=== PATIENT | female | born 1940 | race Caucasian/White ===

== ENCOUNTER → 2018-02-22 | Outpatient (REF) | payer OTHER ==
[2018-02-22 12:44] LABS: FREE T3 2.8 PG/ML (2.2-4.0)
[2018-02-23 09:27] LABS: THYROID PEROXIDASE ANTIBODY < 28.0 U/ML (<60.0)
[2018-02-23 09:28] LABS: THYROGLOBULIN ANTIBODY 15.2 U/ML (<60.0)
== END ==
LOC: M LAB REF 11:46
DX: E03.9 Hypothyroidism, unspecified (principal)
CPT/HCPCS: 86800

== ENCOUNTER → 2018-12-20 | Outpatient (REF) | payer OTHER ==
[~2018-12-20] MED LIST: /WARF3TA OR; ACET65TA OR; ACTI300C OR; CIPRO OR; COLA100C2 OR; COUMADIN OR; DARV100T OR; FERR325T OR; FLAG500T OR; GLIP5TAB2 PO; LOVENOX SC; No Historical Meds; PRAV40TA2 PO; TEGR200T OR; [UNRECOGNIZED DRUG - OTHER] OR; [UNRECOGNIZED DRUG - REMARK]
== END ==
LOC: M LAB REF 17:43
PROVIDERS: ATTEND Nurse Practitioner Adult Health
DX: E03.9 Hypothyroidism, unspecified (principal)

== ENCOUNTER → 2019-04-30 | Outpatient (REF) | payer MEDICARE, OTHER ==
[~2019-04-30] MED LIST changes: -/WARF3TA OR; +ACET-907 PO; +BENA25CA4 PO; +CARB1TAB20 PO; +COUM1TAB19 OR; +LEVO75TA4 PO
== END ==
LOC: M LAB REF 13:21
PROVIDERS: ATTEND Nurse Practitioner Adult Health
DX: G50.0 Trigeminal neuralgia (principal)

== ENCOUNTER → 2019-06-24 | Outpatient (REF) | payer MEDICARE ==
[~2019-06-24] MED LIST changes: -ACET-907 PO; -BENA25CA4 PO; -CARB1TAB20 PO; -LEVO75TA4 PO
== END ==
LOC: M LAB REF 12:30
PROVIDERS: ATTEND Nurse Practitioner Adult Health
DX: G50.0 Trigeminal neuralgia (principal)

== ENCOUNTER 2019-09-01 11:48 | Observation (INO) | payer MEDICARE ==
[~2019-09-01] VITALS: Ht 152.4 cm; Wt 48.2 kg
[2019-09-01] MEDS ORDERED: CARB1TAB20 PO (12:09)
[2019-09-01] MEDS ORDERED: LEVO75TA4 PO (12:09)
[2019-09-01] MEDS ORDERED: BENA25CA4 PO (12:13)
--- NOTE | 2019-09-01 12:19 | ECGEPIP ---
[facility] - ED Test Date: 2019-09-01 Pat Name: MARIN LEONE Department: Room: - Gender: Female Legal Referee: : 1940 Requested By: Sean Ogden Order Number: [id number] Reading MD: Mary Anne Jesus Measurements Intervals [place] Rate: 57 P: 94 MS: 173 QRS: 26 QRSD: 79 T: 57 QT: 375 QTc: 367 Interpretive Statements SINUS BRADYCARDIA NSTTW abnormalities baseline artifact may affect interpretation NO PRIOR Electronically Signed on 09-01-2019 12:19:08 EST by Mary Anne Jesus
[2019-09-01] MEDS ORDERED: NS 500 ML IV ONE (12:30)
[2019-09-01 13:05] LABS: BASO # 0.1 10^3/uL (0.0-0.2); BASO % 0.7 % (0.0-1.0); EOS # 0.1 10^3/uL (0.0-0.5); EOS % 1.6 % (0.0-3.0); HEMATOCRIT 41.3 % (36.0-47.0); HEMOGLOBIN 13.1 g/dl (12.0-15.5); LYMPH # 1.6 10^3/uL (1.5-5.0); LYMPH % 23.9 % (24.0-44.0); MEAN CORPUSCULAR HEMOGLOBIN 29.6 pg (27.0-33.0); MEAN CORPUSCULAR HGB CONC 31.7 g/dl (32.0-36.5); MEAN CORPUSCULAR VOLUME 93.2 fl (80.0-96.0); MONO # 0.4 10^3/uL (0.0-0.8); MONO % 5.7 % (0.0-5.0); NEUTROPHILS # 4.5 10^3/uL (1.5-8.5); NEUTROPHILS % 66.6 % (36.0-66.0); PLATELET COUNT, AUTOMATED 195 10^3/uL (150-450); RED BLOOD COUNT 4.43 10^6/uL (4.00-5.40); WHITE BLOOD COUNT 6.7 10^3/uL (4.0-10.0)
--- NOTE | 2019-09-01 13:05 | REP ---
Chest x-ray: Two views. History: Syncope. Comparison chest x-ray: March 14, 2013. Findings: Monitoring electrodes overlie the chest. Heart is not enlarged. Pulmonary vasculature is not increased. Lung ob[place] are clear. Pleural angles are sharp. There are clips in the right upper quadrant. Impression: No acute disease. Electronically Signed by Roque Lowe MD 09/01/2019 12:56 P
--- NOTE | 2019-09-01 13:07 | REP ---
CT study of the cervical spine without contrast: History: Syncope. "Is Technique: Helical scanning is acquired and overlapping 2 mm high resolution axial images were generated and reviewed at bone and soft tissue window settings. Coronal and sagittal multiplanar re-formations images are generated. CT findings: There is no evidence of cervical spine element fracture. No skull base fracture is seen. Cervical vertebral body heights are preserved. Alignment is normal. Facet joints are normally aligned bilaterally at each cervical level on multiplanar re-formations images. There is no evidence of intraspinal or paraspinal hematoma. No extra vertebral abnormality is seen. There is mild degenerative spondylosis change with osteoarthritic facet changes and degenerative disc disease in the cervical spine. There is osteoarthritis at the articulation between the dens and the anterior C1. There is a mild levoconvex curvature. Impression: Degenerative spondylosis changes. Otherwise negative CT study of the cervical spine without contrast. No fracture seen. Electronically Signed by Roque Lowe MD 09/01/2019 12:58 P
[2019-09-01 13:14] LABS: INR 1.07; PROTHROMBIN TIME 13.6 SECONDS (11.8-14.0)
[2019-09-01 13:15] LABS: PARTIAL THROMBOPLASTIN TIME 22.9 SECONDS (25.0-38.4)
[2019-09-01 13:30] LABS: BLOOD UREA NITROGEN 14 MG/DL (7-18); CALCIUM LEVEL 8.9 MG/DL (8.8-10.2); CARBON DIOXIDE LEVEL 26 MEQ/L (21-32); CHLORIDE LEVEL 108 MEQ/L (98-107); CK-MB VALUE MASS < 1.0 NG/ML (<3.6); CPK CREATINE PHOSPHOKINASE 50 U/L (26-192); CREATININE FOR GFR 1.21 MG/DL (0.55-1.30); GLOMERULAR FILTRATION RATE 45.8 (>39); GLUCOSE, FASTING 94 MG/DL (70-100); MAGNESIUM LEVEL 1.9 MG/DL (1.8-2.4); POTASSIUM SERUM 3.9 MEQ/L (3.5-5.1); SODIUM LEVEL 142 MEQ/L (136-145); TROPONIN I < 0.02 NG/ML (< 0.10)
[2019-09-01] MEDS ORDERED: ACET-907 PO (14:07)
[2019-09-01] MEDS ORDERED: MOM 30ML SUSPENSION UDC PO PRN (14:30)
[2019-09-01] MEDS ORDERED: MAALOX 30 ML SUSP *UDC PO PRN (14:30)
[2019-09-01] MEDS ORDERED: ACETAMINOPHEN TAB 650MG DOSE (2X325MG) PO PRN (14:30)
--- NOTE | 2019-09-01 14:38 | HPEPDOC ---
General Date of Admission 09/01/19 Date of Service: Sep 01, 2019 Chief Complaint The patient is a 78-year-old female admitted with a reason for visit of Syncope. Source: Patient, Family Exam Limitations: No limitations Timing/Duration: Other Severity: Mild Associated Symptoms: Other (. 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 Splenic vein thrombosis mesenteric vein thrombosis. Acute cholecystitis. Common bile duct stones, cholecystectomy, diverticulosis, pneumonia, hyperlipidemia, night sweats or for trigeminal neuralgia and questionable history of diabetes from her old records was in her usual state of health when shopping with her daughter at the [employer] when she felt hot and had a sudden loss of consciousness and she fell down. As per daughter, she was unconscious for probably 10 seconds by the time she got to her. She was recommended not, but she was speaking in a slurred and understandable words. Eschen denies any aura or seizure-like activity, headache, chest pain, shortness of breath, etc. Home Medications Scheduled Carbamazepine (Carbamazepine) 200 Mg Tablet, 200 MG PO BID, (Reported) Levothyroxine Sodium (Levothyroxine Sodium) 75 Mcg Tablet, 75 MG PO QAM, (Reported) PT HAS NOT PICKED UP SCRIPT FROM PHARMACY. Scheduled PRN Acetaminophen (Tylenol) 325 Mg Tablet, 650 MG PO Q6H PRN for PAIN, (Reported) Diphenhydramine HCl (Benadryl) 25 Mg Capsule, 25 MG PO Q6H PRN for CONGESTION, (Reported) Allergies Coded Allergies: No Known Allergies (Verified , 09/01/19) Past Medical History Medical History Necrotizing pancreatitis, splenic vein thrombosis and mesenteric vein thrombosis. Acute cholecystitis secondary to bile duct stones, pancreatitis associated with above, diverticulosis, pneumonia, hyperlipidemia, night sweats surgery of trigeminal neuralgia. Surgical History Hysterectomy Family History Significant Family History: Other (. Mother had a breast cancer and father of lung cancer) Social History * Smoker: non-smoker Alcohol: Denies Drugs: denies A-FIB/CHADSVASC A-FIB History Current/History of A-Fib/PAF?: No Review of Systems Constitutional: Denies: Chills, Fever, Malaise, Night Sweats, Weakness, Fatigue, Weight Loss, Lethargy, Other Eyes: Denies: Pain, Vision change, Conjunctivae inflammation, Eyelid inflammation, Redness, Other ENT: Denies: Head Aches, Ear Pain, Dysphagia, Sinus Congestion, Post Nasal Drip, Sore Throat, Epistaxis, Other Symptoms Skin: Denies: Rash, Lesions, Jaundice, Bruising, Itching, Dry, Breakdown, Nail Changes, Other Pulmonary: Denies: Dyspnea, Cough, Pleuritic Chest Pain, Other Symptoms Cardiovascular: Denies: Chest Pain, Palpitations, Orthopnea, Paroxysmal Noc. Dyspnea, Edema, Lt Headedness, Other Symptoms Gastrointestinal: Denies: Nausea, Vomiting, Abdominal Pain, Diarrhea, Constipation, Melena, Hematochezia, Other Symptoms Genitourinary: Denies: Dysuria, Frequency, Incontinence, Hematuria, Retention, Other Symptoms Hematologic: Denies: Bruising, Bleeding Excessively, Petecchia, Purpura, Enlarged Lymph Nodes, Other Hematologic Endocrine: Denies: Polydipsia, Polyphagia, Polyuria, Heat Intolerance, Cold Intolerance, Other Endocrine Sx Musculoskeletal: Denies: Neck Pain, Back Pain, Shoulder Pain, Arm Pain, Hand Pain, Leg Pain, Foot Pain, Joint Pain, Muscle Pain, Spasms, Other Symptoms Neurological: Reports: Other Symptoms (is to be with sudden loss of consciousness for 10 seconds) Psych: Denies: Mood Normal, Anxiety, Depression, Memory Issues, Thoughts of Self Harm, Anger, Thoughts of Harming Other, Other Psych Physical Examination General Exam: Positive: Alert, Cooperative Eye Exam: Positive: PERRLA, Conjunctiva & lids normal ENT Exam: Positive: Atraumatic, Mucous membr. moist/pink Neck Exam: Positive: Supple Chest Exam: Positive: Clear to auscultation Heart Exam: Positive: Rate Normal, Normal S1 Abdomen Exam: Positive: Normal bowel sounds, Soft Extremity Exam: Positive: Normal pulses Skin Exam: Positive: Nl turgor and temperature Neuro Exam: Positive: Strength at 5/5 X4 ext, Sensation Intact, Cranial Nerves 3-12 NL Psych Exam: Positive: Mental status NL, Oriented x 3 Vital Signs Vital Signs Date Time Temp Pulse Resp B/P (MAP) Pulse Ox O2 Delivery O2 Flow Rate FiO2 09/01/19 14:03 61 100 09/01/19 14:01 16 144/68 (93) Room Air 09/01/19 12:56 97.6 Laboratory Data Labs 24H Laboratory Tests 2 09/01/19 12:05: Bedside Glucose (Misc Panel) 97 09/01/19 12:40: Immature Granulocyte % (Auto) 1.5, Neutrophils (%) (Auto) 66.6H, Lymphocytes (%) (Auto) 23.9L, Monocytes (%) (Auto) 5.7H, Eosinophils (%) (Auto) 1.6, Basophils (%) (Auto) 0.7, Neutrophils # (Auto) 4.5, Lymphocytes # (Auto) 1.6, Monocytes # (Auto) 0.4, Eosinophils # (Auto) 0.1, Basophils # (Auto) 0.1, Nucleated Red Blood Cells % (auto) 0.0, Prothrombin Time 13.6, Prothromb Time International Ratio 1.07, Activated Partial Thromboplast Time 22.9L, Anion Gap 8, Glomerular Filtration Rate 45.8, Calcium Level 8.9, Magnesium Level 1.9, Total Creatine Kinase 50, Creatine Kinase MB < 1.0, Creatine Kinase MB Relative Index 2.00, Troponin I < 0.02, Thyroid Stimulating Hormone (TSH) 7.830H, Free Thyroxine 0.70L CBC/BMP Laboratory Tests 09/01/19 12:40 Problems (1) Syncope Status: Acute Problem Text: 78 years old white female past medical history of diabetes mellitus necrotizing pancreatitis, splenic vein thromboses mesenteric vein thrombosis, pneumonia, hyperlipidemia, trigeminal neuralgia had a sudden onset of syncope with loss of consciousness for 10 seconds followed by slurred speech and speaking in intelligible language. Patient at the present time, asymptomatic. No weakness or sensory loss. No chest pain or shortness of breath Syncope, most likely vasovagal versus orthostatic versus TIA Admit patient to PCU with telemetry CT head is essentially negative but we will order MRA of head and neck are without contrast first and if needed we will request one with contrast Echocardiogram Serial troponins . Aspirin 325 mg by mouth daily , Lipitor 20 mg by mouth daily , LDL , Hemoglobin A1c A.m. labs Consistent carbohydrate diet Bed rest with bathroom privileges DVT prophylaxis with bilateral SCDs Home meds (2) Trigeminal neuralgia Status: Chronic Problem Text: Continue carbamazepine (3) Hypothyroidism Status: Chronic Problem Text: Continue Synthroid (4) Diabetes mellitus Problem Text: Fingerstick blood sugar every before meals and nightly with coverage hemoglobin A1c to assess the disease progression Lipid profile Plan / VTE VTE Prophylaxis Ordered?: Yes SOPHY SCHUMACHER MD Sep 01, 2019 14:38
[2019-09-01] MEDS ORDERED: GLUCOSE 4 GM CHEW TABLET PO PRN (14:45)
[2019-09-01] MEDS ORDERED: DEXTROSE 50% 50 ML SYRINGE IV PRN (14:45)
[2019-09-01] MEDS ORDERED: GLUCAGON FOR INJ 1 MG VIAL (J1610) SC PRN (14:45)
[2019-09-01] MEDS: HumaLOG INSULIN (NovoLOG) PER UNIT SC SCH ×2 (19:09→21:00)
[2019-09-01] MEDS: carBAMazepine 200 MG TAB PO SCH (21:57)
[2019-09-01] MEDS: DOCUSATE SODIUM 100 MG CAP PO SCH (21:57)
[2019-09-02 03:02] VITALS: BP 122/62
[2019-09-02] MEDS: LEVOTHYROXINE 75MCG TABLET (0.075MG) PO SCH (06:23)
[2019-09-02 06:24] LABS: HEMATOCRIT 33.2 % (36.0-47.0); MEAN CORPUSCULAR HEMOGLOBIN 29.7 pg (27.0-33.0); MEAN CORPUSCULAR HGB CONC 33.1 g/dl (32.0-36.5); MEAN CORPUSCULAR VOLUME 89.7 fl (80.0-96.0); PLATELET COUNT, AUTOMATED 165 10^3/uL (150-450); WHITE BLOOD COUNT 5.2 10^3/uL (4.0-10.0)
[2019-09-02 06:41] LABS: HEMOGLOBIN A1c 5.7 %
--- NOTE | 2019-09-02 06:42 | REP ---
CT brain without contrast: History: Syncope. Comparison brain MRI study is from February 16, 2011. CT findings: Preliminary digital merchandise flow team member radiograph is unremarkable. Bony calvarium is intact. There is moderate vascular calcification in the distal carotid arteries. Visualized paranasal sinuses are clear. No intraorbital abnormality is seen. There is no evidence of intracranial hemorrhage. No extra-axial fluid collection is seen. There are mild small vessel changes. Mild diffuse atrophy. Impression: No acute intracranial abnormality. Electronically Signed by Roque Lowe MD 09/02/2019 08:35 A
[2019-09-02 06:51] LABS: ALBUMIN 3.2 GM/DL (3.2-5.2); ALT/SGPT 12 U/L (12-78); BILIRUBIN,TOTAL 0.6 MG/DL (0.2-1.0); BLOOD UREA NITROGEN 13 MG/DL (7-18); CALCIUM LEVEL 8.7 MG/DL (8.8-10.2); CARBON DIOXIDE LEVEL 27 MEQ/L (21-32); CHLORIDE LEVEL 109 MEQ/L (98-107); CHOLESTEROL LEVEL 231 MG/DL (<200); CHOLESTEROL RISK RATIO 4.914 (<5); CREATININE FOR GFR 1.03 MG/DL (0.55-1.30); FREE T4 0.75 NG/DL (0.76-1.46); GLOMERULAR FILTRATION RATE 55.2 (>39); GLUCOSE, FASTING 87 MG/DL (70-100); HDL CHOLESTEROL 47 MG/DL (>40); LDL CHOLESTEROL 151 MG/DL (<100); NON-HDL-C 184 MG/DL; POTASSIUM SERUM 4.1 MEQ/L (3.5-5.1); SODIUM LEVEL 141 MEQ/L (136-145); TOTAL PROTEIN 6.5 GM/DL (6.4-8.2); TRIGLYCERIDES LEVEL 166 MG/DL (<150); TROPONIN I < 0.02 NG/ML (< 0.10)
--- NOTE | 2019-09-02 07:03 | REP ---
MR angiography of the carotids without contrast: History: Syncope. Technique: 2-D [id number] MR angiography is acquired. Maximal intensity projection images are generated and viewed in a rotational format. MR angiographic findings: Great vessel origins show no abnormality. The common carotid arteries segments appear intact. There is mild plaquing at the carotid bifurcation on the left greater than right. No significant stenosis is seen in either proximal internal carotid artery. The cervical segments of the vertebral arteries are patent bilaterally, left is smaller. Impression: Less than 50% narrowing in the proximal internal carotid arteries. Right-dominant vertebrals. Otherwise unremarkable. No high-grade stenosis. Electronically Signed by Roque Lowe MD 09/02/2019 08:38 A
[2019-09-02] MEDS: HumaLOG INSULIN (NovoLOG) PER UNIT SC SCH ×4 (07:30→20:59)
--- NOTE | 2019-09-02 07:47 | REP ---
MR angiography the brain without contrast: History: Syncope. Technique: 3-D [id number] MR angiography of the brain is acquired in the usual fashion and maximal intensity projection images were generated in rotational format about the vertical and horizontal axes. In addition, source axial T1-weighted images are viewed in cine mode. MR angiographic findings: The distal vertebral arteries are bilaterally patent. Right is larger than left. Basilar artery is a little tortuous but widely patent. The posterior cerebral and superior cerebellar vessels are normal and symmetric. The distal internal carotid arteries are unremarkable. Anterior and middle cerebral arteries appear intact. The A1 segment on the left is hypoplastic but patent. The A1 segment on the right is widely patent. There is no visible hathaway aneurysm or arteriovenous malformation. Impression: Unremarkable MR angiography the brain. Electronically Signed by Roque Lowe MD 09/01/2019 03:25 P
[2019-09-02 08:00] VITALS: BP 111/58
--- NOTE | 2019-09-02 08:38 | IPNPDOC ---
Text Note Date of Service The patient was seen on 09/02/19. NOTE Subjective: Patient seen and examined at bedside. No acute overnight events reported. No new medical complaints. Patient described her syncopal episode yesterday. She was in [employer], wearing her winter coat, felt warm, then passed out. She had a typical morning otherwise, had breakfast. Her syncopal event occurred around 12:00PM. She states that she had a previous episode many years ago, with no clear etiology. No other episodes of dizziness or light headedness. Denies chest pain, shortness of breath, headaches, abdominal pain, N/V/D. Objective: General: NAD, lying comfortably in bed, elderly HEENT: NC/AT, EOMI Lungs: CTA B/L Heart: +S1S2, RRR Abd: soft, NT, +BS Ext: no edema A/P: 78 yo female for syncopal episode with PMHx DM/necrotizing pancreatitis, spleni c/mesenteric vein thrombosis, hyperlipidemia, hypthyroidism, trigeminal neuralgia. #syncope - continue telemetry - imaging unremarkable - echocardiogram pending - PT/OT #hypothyroidism - increase synthroid #DM - A1C noted - good control - carb consistent diet #HLD - continue statin therapy #trigeminal neuralgia - continue carbamazepine #DVT prophylaxis Dispo: pending echo, PT/OT eval VS,Fishbone, I+O VS, Fishbone, I+O Laboratory Tests 09/01/19 12:40 09/02/19 05:33 09/02/19 05:34 Vital Signs Date Time Temp Pulse Resp B/P (MAP) Pulse Ox O2 Delivery O2 Flow Rate FiO2 09/02/19 08:00 97.1 59 18 111/58 (75) 96 Room Air I&O- Last 24 Hours up to 6 AM 09/02/19 06:00 Intake Total 500 ml Output Total 0 ml Balance 500 ml ITALO VILLEDA MD Sep 02, 2019 08:38
[2019-09-02] MEDS: DOCUSATE SODIUM 100 MG CAP PO SCH ×2 (09:22→20:58)
[2019-09-02] MEDS: ASPIRIN 325 MG TAB PO SCH (09:22)
[2019-09-02] MEDS: carBAMazepine 200 MG TAB PO SCH ×2 (09:22→20:58)
[2019-09-02] MEDS ORDERED: SLF 3 ML SYR IV PRN (12:00)
[2019-09-02] MEDS: SLF 3 ML SYR IV SCH ×2 (12:50→22:00)
[2019-09-02 15:55] VITALS: BP 125/67
[2019-09-02 18:50] VITALS: BP 106/51
[2019-09-02 23:52] VITALS: BP 118/58
[2019-09-03 03:27] VITALS: BP 96/53
[2019-09-03] MEDS: LEVOTHYROXINE 75MCG TABLET (0.075MG) PO SCH (05:20)
[2019-09-03] MEDS: SLF 3 ML SYR IV SCH ×2 (05:20→08:43)
--- NOTE | 2019-09-03 07:02 | ECHO ---
DATE OF PROCEDURE: 09/02/2019 DATE OF : 1940 AGE: 78 GENDER: Female. HEIGHT: 60 inches WEIGHT: 116 pounds BODY SURFACE AREA: 1.48 meters squared INPATIENT: U - Room 3220 REFERRING PHYSICIAN: Dr. Donell Gray INDICATION: Syncope. MEASUREMENTS: 2-D Measurements: RV: 3.1 cm LV: 4.5 cm Septum: 1.1 cm Posterior wall: 1.1 cm Aortic root: 2.9 cm LA: 3.6 cm LVEF: 65% Doppler Measurements: AV: 1.06 m/s LVOT: 0.93 m/s LVOT diameter: 2.0 cm MV - E 103 A 77 EA ratio 1.4 Early mitral deceleration time: 150 ms E prime medial: 5.8 A prime medial: 5.4 E prime lateral: 6 Average E/E prime ratio: 17.5; PCWP 23.5 mmHg PV: 0.7 m/s Pulmonary artery acceleration time: 113 ms RVSP: 37 mmHg IVC: 1.9 cm COMMENTS: Sinus bradycardia without intraventricular conduction disturbance. M-mode and two-dimensional echocardiography was performed with pulsed, continuous wave, color flow and tissue Doppler studies. Normal left ventricular size, wall thickness and wall motion. Left atrial size upper limits of normal with Doppler evidence of grade 2 LV diastolic dysfunction and elevated estimated mean left atrial pressure. Normal right heart chamber sizes and motion with Doppler evidence of at least mild pulmonary hypertension. Normal IVC size and collapse against an elevated central venous pressure. Mild aortic valvular sclerosis without functional abnormality. Mild mitral annular calcification without inflow tract obstruction but mild-moderate insufficiency. Normal appearing tricuspid valve with mild insufficiency. No apparent intracardiac mass or pericardial effusion. Unable to detect a structural or functional abnormality to account for the patient's syncopal spell.
[2019-09-03 07:59] VITALS: BP 129/63
[2019-09-03] MEDS: DOCUSATE SODIUM 100 MG CAP PO SCH (08:42)
[2019-09-03] MEDS: ASPIRIN 325 MG TAB PO SCH (08:42)
[2019-09-03] MEDS: carBAMazepine 200 MG TAB PO SCH (08:43)
--- NOTE | 2019-09-03 18:16 | DS.PDOC ---
Discharge Summary General Date of Admission Sep 01, 2019 at 11:49 Date of Discharge 09/03/2019 Attending Physician: FRANCO MEYER MD Discharge Summary PROCEDURES PERFORMED DURING STAY: None. ADMITTING DIAGNOSES: 1. Syncope. DISCHARGE DIAGNOSES: 1. Syncope. COMPLICATIONS/CHIEF COMPLAINT: Syncope. HISTORY OF PRESENT ILLNESS: 78-year-old female with past medical history of splenic and mesenteric vein thrombosis was admitted for syncope. She had no further episodes in the hospital, workup was negative including CT, MRI, TTE, patient evaluated and cleared by PT. Patient without any complaint at this time, wishing to go home. Patient is clinically without stable for discharge and outpatient follow-up. HOSPITAL COURSE: As above. DISCHARGE MEDICATIONS: Please see below. ALLERGIES: Please see below. PHYSICAL EXAMINATION: VITAL SIGNS: Please see below. GENERAL: No distress, frail HEENT: Normocephalic, atraumatic, moist mucous membranes NECK: Supple CARDIOVASCULAR EXAMINATION: S1, S2, no murmurs RESPIRATORY EXAMINATION: Clear to auscultation, no wheezing ABDOMINAL EXAMINATION: Soft, nontender, nondistended, positive bowel sounds EXTREMITIES: Range of motion intact SKIN: No rash NEUROLOGICAL EXAMINATION: Alert and oriented 3, no focal deficits PSYCHIATRIC EXAMINATION: Calm and cooperative LABORATORY DATA: Please see below. IMAGING: CT Negative for acute pathology PROGNOSIS: Fair ACTIVITY: As tolerated. DIET: Regular DISCHARGE PLAN: Patient is to follow with neurologist and PCP in 1-2 weeks DISPOSITION: 01 Home, Self-Care. DISCHARGE INSTRUCTIONS: 1. As above. DISCHARGE CONDITION: Stable. TIME SPENT ON DISCHARGE: Greater than 25 minutes. Vital Signs/I&Os Vital Signs Date Time Temp Pulse Resp B/P (MAP) Pulse Ox O2 Delivery O2 Flow Rate FiO2 09/03/19 07:59 97.0 56 18 129/63 (85) 95 Room Air I&O- Last 24 Hours up to 6 AM 09/03/19 06:00 Intake Total 300 ml Output Total 400 ml Balance -100 ml Laboratory Data Labs 24H Laboratory Tests 2 09/02/19 20:14: Bedside Glucose (Misc Panel) 95 09/03/19 05:22: Bedside Glucose (Misc Panel) 101 FSBS Laboratory Tests Test 09/02/19 20:14 09/03/19 05:22 Range/Units Bedside Glucose (Misc Panel) 95 101 83-110 MG/DL Discharge Medications Scheduled Carbamazepine (Carbamazepine) 200 Mg Tablet, 200 MG PO BID, (Reported) Levothyroxine Sodium (Levothyroxine Sodium) 75 Mcg Tablet, 75 MG PO QAM, (Reported) PT HAS NOT PICKED UP SCRIPT FROM PHARMACY. Scheduled PRN Acetaminophen (Tylenol) 325 Mg Tablet, 650 MG PO Q6H PRN for PAIN, (Reported) Diphenhydramine HCl (Benadryl) 25 Mg Capsule, 25 MG PO Q6H PRN for CONGESTION, (Reported) Allergies Coded Allergies: No Known Allergies (Verified , 09/01/19) FRANCO MEYER MD Sep 03, 2019 18:16
== END 2019-09-03 16:00 | disposition home or self-care (01) ==
LOC: EDBD 11:48 → M ED 11:48 → M ED INP 11:49 → M PCU 09-02 03:01
PROVIDERS: ADMIT Internal Medicine; ATTEND Internal Medicine
DX: R55 Syncope and collapse (principal); R00.1 Bradycardia, unspecified; R47.81 Slurred speech; E11.9 Type 2 diabetes mellitus without complications; E78.5 Hyperlipidemia, unspecified; G50.0 Trigeminal neuralgia; E03.9 Hypothyroidism, unspecified; K57.90 Diverticulosis of intestine, part unspecified, without perforation or abscess without bleeding; Z86.718 Personal history of other venous thrombosis and embolism; Z87.19 Personal history of other diseases of the digestive system; Z79.899 Other long term (current) drug therapy
CPT/HCPCS: 36415; 70450; 70544; 70547; 71046; 72125; 80048; 80053; 80061; 82550; 82553; 83036; 83735; 84439; 84443; 84484; 85025; 85027; 85610; 85730; 93005; 93041; 93306; 94760; 96360; 97116; 97161; 97165; 99285; G0378

== ENCOUNTER → 2020-04-30 | Outpatient (CLI) | payer MEDICARE ==
[~2020-04-30] MED LIST changes: +ACET-907 PO; +BENA25CA4 PO; +CARB1TAB20 PO; +LEVO75TA4 PO
[2020-04-30 12:28] LABS: BASO # 0.1 10^3/uL (0.0-0.2); BASO % 1.3 % (0.0-1.0); EOS # 0.1 10^3/uL (0.0-0.5); EOS % 2.5 % (0.0-3.0); HEMATOCRIT 35.9 % (36.0-47.0); HEMOGLOBIN 12.2 g/dl (12.0-15.5); LYMPH # 1.6 10^3/uL (1.5-5.0); LYMPH % 34.3 % (24.0-44.0); MEAN CORPUSCULAR HEMOGLOBIN 29.8 pg (27.0-33.0); MEAN CORPUSCULAR VOLUME 87.6 fl (80.0-96.0); MONO # 0.4 10^3/uL (0.0-0.8); NEUTROPHILS # 2.5 10^3/uL (1.5-8.5); NEUTROPHILS % 52.3 % (36.0-66.0); PLATELET COUNT, AUTOMATED 224 10^3/uL (150-450); WHITE BLOOD COUNT 4.8 10^3/uL (4.0-10.0)
[2020-04-30 13:01] LABS: ERYTHROCYTE SEDIMENTATION RATE 24 mm/hr (0-30)
[2020-04-30 13:05] LABS: ALBUMIN 3.8 GM/DL (3.2-5.2); ALT/SGPT 15 U/L (12-78); BILIRUBIN,TOTAL 0.4 MG/DL (0.2-1.0); BLOOD UREA NITROGEN 15 MG/DL (7-18); CALCIUM LEVEL 8.9 MG/DL (8.8-10.2); CARBON DIOXIDE LEVEL 24 MEQ/L (21-32); CHLORIDE LEVEL 109 MEQ/L (98-107); CREATININE FOR GFR 0.96 MG/DL (0.55-1.30); FOLATE 6.5 NG/ML; GLOMERULAR FILTRATION RATE 59.7 (>39); GLUCOSE, FASTING 101 MG/DL (70-100); POTASSIUM SERUM 4.2 MEQ/L (3.5-5.1); RHEUMATOID FACTOR QUANT < 10.0 IU/ML (<15.0); SODIUM LEVEL 143 MEQ/L (136-145); THYROID STIMULATING HORMONE 0.092 uIU/ML (0.358-3.740); TOTAL PROTEIN 7.1 GM/DL (6.4-8.2); VITAMIN B12 LEVEL 306 PG/ML
[2020-04-30 15:28] LABS: HEMOGLOBIN A1c 5.5 %
[2020-05-04 12:46] LABS: ALBUMIN % 62.5 % (55.8-66.1); ALPHA-1-GLOBULIN % 4.4 % (2.9-4.9); ALPHA-2-GLOBULINS % 10.3 % (7.1-11.8); BETA-1-GLOBULINS % 5.4 % (4.7-7.2); BETA-2-GLOBULINS % 6.3 % (3.2-6.5)
[2020-05-04 12:47] LABS: ALBUMIN 4.44 GM/DL (3.29-5.55); ALPHA-1-GLOBULINS 0.31 GM/DL (0.17-0.41); ALPHA-2-GLOBULINS 0.73 GM/DL (0.42-0.99); BETA-1-GLOBULINS 0.38 GM/DL (0.28-0.60); BETA-2-GLOBULINS 0.45 GM/DL (0.19-0.55); GAMMA GLOBULIN % 11.1 % (11.1-18.8); GAMMA GLOBULINS 0.79 GM/DL (0.65-1.58)
[2020-05-04 16:08] LABS: ANCA-ATYPICAL <1:20 titer (Neg:<1:20); ANTI DS-DNA AB Negative (Negative); ANTINUCLEAR ANTIBODIES DIRECT Negative (Negative); CYTOPLASMIC NEUTROP AB ANCA-C <1:20 titer (Neg:<1:20); Lyme Disease IgG/IgM Antibodie <0.91 ISR (0.00-0.90); Lyme Disease IgM Ab Quantitati <0.80 index (0.00-0.79); PERINUCLEAR AB ANCA-P <1:20 titer (Neg:<1:20); SJOGREN'S ANTI SS-A <0.2 AI (0.0-0.9); SJOGREN'S ANTI SS-B 0.6 AI (0.0-0.9); VITAMIN B1 LEVEL WHOLE BLOOD 97.1 nmol/L (66.5-200.0); VITAMIN B6,PYRIDOXAL PHOSPHATE 4.8 ug/L (2.0-32.8); VITAMIN E(GAMMA TOCOPHEROL) 1.9 mg/L (0.5-4.9)
[2020-06-09 11:37] LABS: PTT LUPUS TYPE ANTICOAG SCREEN 1.1 (0-1.2)
[2020-06-15 15:34] LABS: VITAMIN E(ALPHA TOCOPHEROL) 13.2 mg/L (9.0-29.0)
== END ==
LOC: M LAB 10:21
PROVIDERS: ATTEND Psychiatry & Neurology Neurology
DX: G62.9 Polyneuropathy, unspecified (principal); Z79.899 Other long term (current) drug therapy

== ENCOUNTER 2021-01-15 15:20 | Emergency (ER) | payer MEDICARE ==
[~2021-01-15] VITALS: Ht 157.5 cm; Wt 56.8 kg
--- NOTE | 2021-01-15 15:58 | REP ---
INDICATION: trauma. COMPARISON: CT AND MR A BRAIN 09/01/2019. TECHNIQUE: CT BRAIN PERFORMED IN THE AXIAL PLANE. CORONAL RECONSTRUCTION IMAGES ARE PERFORMED. FINDINGS: LATERAL VENTRICLES ARE MIDLINE, SYMMETRIC AND THEIR SIZE PROPORTIONATE TO THE DIFFUSE CEREBRAL ATROPHY. 3RD AND 4TH VENTRICLES ARE ALSO PROPORTIONATE SIZE AND I SEE NO SIGNIFICANT PROGRESSION OF ATROPHY OR VENTRICULAR SIZE FROM THE PRIOR THERE ARE BILATERAL CALCIFICATIONS IN THE BASAL GANGLIA UNCHANGED FEW HYPODENSITIES BILATERALLY AND CAUDATE NUCLEI AIR CONSISTENT WITH OLD LACUNAR INFARCTS SEEN ON PREVIOUS MRI IN 2011. HETEROGENEOUS LOW-ATTENUATION WHITE MATTER CHANGES ARE SEEN REPRESENTING CHRONIC SMALL VESSEL ISCHEMIC DISEASE. SOME MODERATE CORTICAL ATROPHY IS SEEN. THIS IS GREATEST IN THE FRONTAL AND TEMPORAL LOBES. THERE IS NO INTRA OR EXTRA-AXIAL HEMORRHAGE, MASS OR MASS EFFECT. NO EXTRA-AXIAL FLUID COLLECTIONS POSTERIOR FOSSA SHOWS CEREBELLAR ATROPHY WITHOUT HEMORRHAGE OR MASS NO POSTERIOR FOSSA BLEED. BASAL CISTERNS ARE INTACT THERE ARE VASCULAR CALCIFICATIONS IN THE CAROTID SIPHONS. MASTOIDS, VISUALIZED SINUSES SKULL BASE AND CALVARIUM ARE WITHOUT ANY ACUTE FINDING IMPRESSION: VENTRICULAR SIZE PROPORTIONATE TO THE MODERATE DIFFUSE CEREBRAL ATROPHY WITHOUT PROGRESSION FROM THE 2019 STUDY. NO ACUTE INFARCT, INTRACRANIAL HEMORRHAGE, MASS OR MASS EFFECT. 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 CHRONIC SMALL VESSEL ISCHEMIC CHANGES IN THE WHITE MATTER, STABLE. SKULL BASE AND CALVARIUM WITHOUT FRACTURE OR FOCAL LESION. SINUSES AND MASTOIDS VISIBLE WERE CLEAR. <Electronically signed by Arnol Bustillos > 01/15/21 [id number]
--- NOTE | 2021-01-15 16:04 | REP ---
INDICATION: trauma/ decreased ROM COMPARISON: None. TECHNIQUE: Three views left shoulder. FINDINGS: There is nondisplaced fracture of the proximal head and neck of the humerus in the region of the greater tuberosity. I see no other evidence of acute fracture or dislocation. There is mild narrowing of the acromioclavicular joint. IMPRESSION: Nondisplaced fracture of the proximal head and neck of the humerus in the region of the greater tuberosity. <Electronically signed by Casey Andino > 01/15/21 1600
--- NOTE | 2021-01-15 16:05 | REP ---
INDICATION: trauma/ decreased ROM COMPARISON: None. TECHNIQUE: Four views left elbow. FINDINGS: There is no evidence of acute fracture, dislocation, or intrinsic bone disease.There is no radiographic evidence of a significant joint effusion. There is mild spurring of the proximal ulna. IMPRESSION: No fracture or dislocation. <Electronically signed by Casey Andino > 01/15/21 [id number]
--- NOTE | 2021-01-15 16:06 | REP ---
INDICATION: trauma. COMPARISON: 09/01/2019 TECHNIQUE: Standard trauma protocol with the coronal and sagittal reconstructions the cervical spine FINDINGS: Sagittal reconstructions show the normal cervical lordosis is unchanged. There is cervical spondylosis greatest at C6-7 and C7-T1 with lesser spondylitic changes at C4-5 and C5-6. Are posterior osteophytes at C5-6 and C6-7. There is no compression deformity or malalignment the dens abuts the anterior arch of C1. It has symmetric relationship to the lateral masses of C1 on coronal reconstructions. Ring of C1 is intact. Spinous processes, lamina, pedicles, facets and transverse processes show no fractures. There is facet arthropathy at multiple levels throughout the cervical spine. Foramina marginally adequate on the right at C4-5, on the left at C 6 7 and adequate at all other levels. Paraspinal musculature unremarkable. No prevertebral swelling is noted. Airway from the nasopharynx to the subglottic trachea grossly intact. Some apical pleuroparenchymal scarring bilaterally but mild. This is unchanged IMPRESSION: 1. Cervical spondylosis at C6-7 and C7-T1, less at C4-5 and C5-6. No compression deformity or malalignment. No central canal stenosis. Foraminal encroachment due to uncinate and facet spurs at the levels described above nothing acute. 2. C1-2 relationships normal and unchanged. There are degenerative changes there. Craniocervical junction aligns normally. Nothing acute. <Electronically signed by Arnol Bustillos > 01/15/21 [id number]
--- NOTE | 2021-01-15 16:12 | REP ---
INDICATION: trauma/ decreased ROM COMPARISON: None. TECHNIQUE: Two views left humerus. FINDINGS: There is nondisplaced fracture of the left humeral head and neck in the region of the greater tuberosity. No other acute fracture or dislocation is seen. IMPRESSION: Nondisplaced fracture left humeral head and neck in the region of the greater tuberosity. <Electronically signed by Casey Andino > 01/15/21 2171
--- NOTE | 2021-01-15 16:27 | REP ---
INDICATION: trauma. COMPARISON: 09/01/2019 TECHNIQUE: AP portable FINDINGS: Lungs are well inflated without infiltrate, effusion, pneumothorax, atelectasis or mass. No pulmonary nodule or pleural thickening. Heart size not enlarged for this projection. The aorta and airway are intact. There is no widening of the mediastinum. No vascular redistribution or pulmonary edema. Bones are demineralized. Degenerative changes spine and shoulders. No free air under the diaphragm. IMPRESSION: 1. No acute cardiopulmonary disease, stable chest. <Electronically signed by Arnol Bustillos > 01/15/21 1552
[2021-01-15 17:27] LABS: BASO # 0.1 10^3/uL (0.0-0.2); BASO % 0.6 % (0.0-1.0); EOS # 0.1 10^3/uL (0.0-0.5); EOS % 1.1 % (0.0-3.0); HEMATOCRIT 37.7 % (36.0-47.0); HEMOGLOBIN 12.9 g/dl (12.0-15.5); LYMPH # 1.7 10^3/uL (1.5-5.0); LYMPH % 19.1 % (24.0-44.0); MEAN CORPUSCULAR HEMOGLOBIN 29.6 pg (27.0-33.0); MEAN CORPUSCULAR HGB CONC 34.2 g/dl (32.0-36.5); MEAN CORPUSCULAR VOLUME 86.5 fl (80.0-96.0); MONO # 0.5 10^3/uL (0.0-0.8); MONO % 5.5 % (2.0-8.0); NEUTROPHILS # 6.6 10^3/uL (1.5-8.5); NEUTROPHILS % 73.4 % (36.0-66.0); PLATELET COUNT, AUTOMATED 198 10^3/uL (150-450); RED BLOOD COUNT 4.36 10^6/uL (4.00-5.40)
[2021-01-15 17:51] LABS: INR 0.98; PARTIAL THROMBOPLASTIN TIME 24.1 SECONDS (24.2-38.5); PROTHROMBIN TIME 13.1 SECONDS (12.5-14.3)
[2021-01-15 17:54] LABS: BLOOD UREA NITROGEN 25 MG/DL (7-18); CALCIUM LEVEL 8.7 MG/DL (8.8-10.2); CARBON DIOXIDE LEVEL 27 MEQ/L (21-32); CHLORIDE LEVEL 107 MEQ/L (98-107); CK-MB VALUE MASS < 1.0 NG/ML (<3.6); CPK CREATINE PHOSPHOKINASE 131 U/L (26-192); GLOMERULAR FILTRATION RATE 50.9 (>32); GLUCOSE, FASTING 108 MG/DL (70-100); MB/CK RELATIVE INDEX 0.76 (< OR =4); POTASSIUM SERUM 4.6 MEQ/L (3.5-5.1); SODIUM LEVEL 139 MEQ/L (136-145); TROPONIN I < 0.02 NG/ML (< 0.10)
[2021-01-15 18:49] VITALS: BP 177/74
--- NOTE | 2021-01-15 19:18 | ECGEPIP ---
[facility] - ED Test Date: 2021-01-15 Pat Name: MARIN LEONE Department: Room: - Gender: Female Repossession Agent: Anatoliy VIGIL : 1940 Requested By: ESA Jordan Order Number: [id number] Reading MD: Humera Larose Measurements Intervals [place] Rate: 55 P: 84 TX: 170 QRS: 40 QRSD: 72 T: 51 QT: 394 QTc: 376 Interpretive Statements Sinus bradycardia Nonspecific ST T wave changes 09/01/[address] T wave changes Electronically Signed on 01-15-2021 19:18:18 EDT by Humera Larose
== END 2021-01-15 18:51 | disposition home or self-care (01) ==
LOC: M ED 15:20
DX: S42.215A Unspecified nondisplaced fracture of surgical neck of left humerus, initial encounter for closed fracture (principal); S09.90XA Unspecified injury of head, initial encounter; W01.0XXA Fall on same level from slipping, tripping and stumbling without subsequent striking against object, initial encounter; Y92.9 Unspecified place or not applicable; Y99.9 Unspecified external cause status; Y93.9 Activity, unspecified; Z79.899 Other long term (current) drug therapy

== ENCOUNTER → 2021-02-01 | Outpatient (CLI) | payer MEDICARE ==
--- NOTE | 2021-02-01 13:50 | REP ---
INDICATION: F/U FX. COMPARISON: None. TECHNIQUE: Internal rotation, external rotation, axillary and Y-view of the left shoulder FINDINGS: Nondisplaced fracture involving the proximal humerus greater tuberosity. No new acute fracture or dislocation. IMPRESSION: Continued evidence for nondisplaced fracture involving the proximal humerus greater tuberosity. Subtle callus formation suggesting healing. <Electronically signed by Scott Gooden > 02/01/21 2127
== END ==
LOC: M SOG 13:08
PROVIDERS: ATTEND Orthopaedic Surgery Sports Medicine
DX: S42.255A Nondisplaced fracture of greater tuberosity of left humerus, initial encounter for closed fracture (principal); W18.30XA Fall on same level, unspecified, initial encounter; Y92.009 Unspecified place in unspecified non-institutional (private) residence as the place of occurrence of the external cause

== ENCOUNTER → 2021-03-04 | Outpatient (CLI) | payer MEDICARE ==
--- NOTE | 2021-03-04 11:02 | REP ---
INDICATION: F/U. COMPARISON: Comparison radiographs are from February 01, 2021.. TECHNIQUE: Four views of the left shoulder are presented. FINDINGS: There is diffuse osteopenia. A greater tuberosity fracture of the proximal humerus is again seen nondisplaced unchanged in position. Glenohumeral and acromioclavicular joints are normally aligned. No bony destructive lesion is seen. IMPRESSION: Nondisplaced fracture of the greater tuberosity of the proximal humerus unchanged in position. Diffuse osteopenia. <Electronically signed by Zuhair Lowe > 03/04/21 [id number]
== END ==
LOC: M SOG 09:19
PROVIDERS: ATTEND Orthopaedic Surgery Sports Medicine
DX: S42.255D Nondisplaced fracture of greater tuberosity of left humerus, subsequent encounter for fracture with routine healing (principal)

== ENCOUNTER → 2021-04-06 | Outpatient (REF) | payer MEDICARE | LOC: M LAB REF 16:33 | PROVIDERS: ATTEND Nurse Practitioner Adult Health | DX: E78.00 Pure hypercholesterolemia, unspecified (principal) ==

== ENCOUNTER → 2021-04-15 | Outpatient (CLI) | payer MEDICARE ==
--- NOTE | 2021-04-15 12:32 | REP ---
INDICATION: NONDISP FX OF GREATER TUBEROSITY OF L HUMER, 7THD. COMPARISON: None. TECHNIQUE: Internal rotation, external rotation, axillary and Y-view of the left shoulder FINDINGS: Age-related osteopenia and age-related changes are noted. No significant overt osteoarthritic or inflammatory arthritic changes are appreciated. Subacromial space is normal. No periarticular calcifications or loose bodies are identified. Surrounding soft tissues are normal. IMPRESSION: Age-related osteopenia and age-related changes. <Electronically signed by Scott Gooden > 04/15/21 [id number]
== END ==
LOC: M SOG 11:04
PROVIDERS: ATTEND Orthopaedic Surgery Sports Medicine
DX: S42.255D Nondisplaced fracture of greater tuberosity of left humerus, subsequent encounter for fracture with routine healing (principal); W18.30XD Fall on same level, unspecified, subsequent encounter; Y92.009 Unspecified place in unspecified non-institutional (private) residence as the place of occurrence of the external cause

== ENCOUNTER 2022-03-17 16:10 | Emergency (ER) | payer MEDICARE ==
[~2022-03-17] VITALS: Ht 152.4 cm; Wt 58.3 kg
[2022-03-17 21:07] VITALS: BP 194/96
== END 2022-03-17 22:29 | disposition left against medical advice (07) ==
LOC: M ED 16:10
DX: Z53.21 Procedure and treatment not carried out due to patient leaving prior to being seen by health care provider (principal)

== ENCOUNTER → 2022-04-05 | Outpatient (REF) | payer MEDICARE | LOC: M LAB REF 16:24 | PROVIDERS: ATTEND Nurse Practitioner Adult Health | DX: G50.0 Trigeminal neuralgia (principal) ==

== ENCOUNTER → 2023-01-03 | Outpatient (CLI) | payer MEDICARE | LOC: M WUC 14:05 | PROVIDERS: ATTEND Nurse Practitioner Adult Health | DX: M26.621 Arthralgia of right temporomandibular joint (principal) ==

== ENCOUNTER → 2023-01-03 | Outpatient (REF) | payer MEDICARE, OTHER | LOC: M LAB REF 17:06 | PROVIDERS: ATTEND Nurse Practitioner Adult Health | DX: G50.0 Trigeminal neuralgia (principal) ==

== ENCOUNTER 2023-01-16 12:18 | Emergency (ER) | payer MEDICARE, OTHER ==
[~2023-01-16] VITALS: Ht 152.4 cm; Wt 55.4 kg
[2023-01-16] MEDS ORDERED: ISOVUE-370 76% 100ML VIAL As Ordered ONE (12:39)
[2023-01-16 12:46] VITALS: BP 153/76
[2023-01-16 13:10] LABS: BASO # 0.1 10^3/uL (0.0-0.2); EOS # 0.1 10^3/uL (0.0-0.5); EOS % 2.1 % (0.0-3.0); HEMATOCRIT 32.3 % (36.0-47.0); HEMOGLOBIN 10.9 g/dl (12.0-15.5); LYMPH # 1.8 10^3/uL (1.5-5.0); LYMPH % 34.9 % (24.0-44.0); MEAN CORPUSCULAR HEMOGLOBIN 30.3 pg (27.0-33.0); MEAN CORPUSCULAR HGB CONC 33.7 g/dl (32.0-36.5); MEAN CORPUSCULAR VOLUME 89.7 fl (80.0-96.0); MONO # 0.4 10^3/uL (0.0-0.8); MONO % 7.9 % (2.0-8.0); NEUTROPHILS # 2.8 10^3/uL (1.5-8.5); NEUTROPHILS % 53.7 % (36.0-66.0); PLATELET COUNT, AUTOMATED 182 10^3/uL (150-450); WHITE BLOOD COUNT 5.2 10^3/uL (4.0-10.0)
[2023-01-16] MEDS ORDERED: TENECTEPLASE 50 MG KIT (TNKase) IVP ONE (13:40)
[2023-01-16 13:49] LABS: CPK CREATINE PHOSPHOKINASE 25 U/L (34-145)
[2023-01-16 13:51] VITALS: BP 178/120
[2023-01-16] MEDS ORDERED: NS 500 ML IV ONE (13:55)
[2023-01-16] MEDS ORDERED: SODIUM CHLORIDE 0.9% INJ 10 ML SYR IV ONE ×2 (14:00)
[2023-01-16 14:19] LABS: RSV AMPLIFICATION NEGATIVE (NEGATIVE)
[2023-01-16 14:35] LABS: CK-MB VALUE MASS < 1.0 NG/ML (<3.6)
[2023-01-16 14:45] VITALS: BP 187/85
== END 2023-01-16 14:52 | disposition short-term general hospital (02) ==
LOC: M ED 12:18
DX: I63.9 Cerebral infarction, unspecified (principal); E78.5 Hyperlipidemia, unspecified; Z79.899 Other long term (current) drug therapy
CPT/HCPCS: 70450; 70496; 70498; 71045; 80047; 82550; 82553; 84484; 85025; 85730; 86850; 86900; 86901; 87631; 93005; 93041; 94760; 96374; 99285; J3101; Q9967

== ENCOUNTER 2023-03-11 14:49 | Emergency (ER) | payer OTHER ==
[~2023-03-11] VITALS: Ht 152.4 cm; Wt 51.3 kg
[2023-03-11 14:49] VITALS: BP 130/66
[2023-03-11] MEDS ORDERED: EZET10TA21 (14:58)
[2023-03-11] MEDS ORDERED: ATOR80TA59 (14:58)
[2023-03-11] MEDS ORDERED: LEVO112T2 (14:58)
[2023-03-11] MEDS ORDERED: CLOP75TA2 (14:58)
== END 2023-03-11 17:37 | disposition home or self-care (01) ==
LOC: M ED 14:49
DX: G60.9 Hereditary and idiopathic neuropathy, unspecified (principal); E78.5 Hyperlipidemia, unspecified; E03.9 Hypothyroidism, unspecified; Z86.73 Personal history of transient ischemic attack (TIA), and cerebral infarction without residual deficits; Z79.899 Other long term (current) drug therapy

== ENCOUNTER 2023-06-29 07:08 | Observation (INO) | payer OTHER ==
[~2023-06-29] VITALS: Ht 157.5 cm; Wt 46.6 kg
[~2023-06-29 07:08] MED LIST changes: +ATOR80TA59 PO; +CLOP75TA2 PO; +EZET10TA21; +LEVO112T2 PO
[2023-06-29] MEDS ORDERED: ASPI81CH33 PO (07:21)
[2023-06-29 07:52] LABS: VENOUS BASE EXCESS -2.4 (-2.0-2.0); VENOUS HCO3 22.5 MMOL/L (23.0-27.0); VENOUS O2 SATURATION 92.4 % (60.0-80.0); VENOUS PARTIAL PRESSURE CO2 39.3 mmHg (38.0-50.0); VENOUS PARTIAL PRESSURE O2 65.5 mmHg (30.0-50.0); VENOUS PH 7.376 UNITS (7.330-7.430); VENOUS STANDARD HCO3 22.4 MMOL/L; VENOUS TOTAL CO2 23.7 MMOL/L (24.0-28.0)
[2023-06-29 08:05] LABS: BASO # 0.1 10^3/uL (0.0-0.2); BASO % 0.6 % (0.0-1.0); EOS # 0.3 10^3/uL (0.0-0.5); EOS % 4.4 % (0.0-3.0); HEMOGLOBIN 11.3 g/dl (12.0-15.5); LYMPH # 1.2 10^3/uL (1.5-5.0); MEAN CORPUSCULAR HEMOGLOBIN 29.4 pg (27.0-33.0); MEAN CORPUSCULAR HGB CONC 33.2 g/dl (32.0-36.5); MEAN CORPUSCULAR VOLUME 88.5 fl (80.0-96.0); MONO # 0.7 10^3/uL (0.0-0.8); MONO % 8.9 % (2.0-8.0); NEUTROPHILS # 5.5 10^3/uL (1.5-8.5); NEUTROPHILS % 70.7 % (36.0-66.0); PLATELET COUNT, AUTOMATED 207 10^3/uL (150-450); RED BLOOD COUNT 3.84 10^6/uL (4.00-5.40); WHITE BLOOD COUNT 7.7 10^3/uL (4.0-10.0)
[2023-06-29 08:32] LABS: ALBUMIN 3.6 G/DL (3.2-5.2); BILIRUBIN,DIRECT 0.2 MG/DL (<0.4); BILIRUBIN,TOTAL 0.6 MG/DL (0.3-1.2); CALCIUM LEVEL 9.2 MG/DL (8.3-10.6); GLOMERULAR FILTRATION RATE 56.5 (>32); POTASSIUM SERUM 3.8 MMOL/L (3.5-5.1); TOTAL PROTEIN 6.5 G/DL (5.7-8.2)
[2023-06-29 08:34] LABS: THYROID STIMULATING HORMONE 0.008 uIU/ML (0.55-4.78)
[2023-06-29 08:39] LABS: INR 1.1; PROTHROMBIN TIME 13.9 SECONDS (12.5-14.5)
[2023-06-29 08:40] LABS: PARTIAL THROMBOPLASTIN TIME 24.2 SECONDS (24.8-34.2)
[2023-06-29] MEDS ORDERED: ONDANSETRON 4MG 2ML VIAL IV ONE (09:00)
[2023-06-29] MEDS ORDERED: MED REC IN PROGRESS XX SCH (09:45)
[2023-06-29] MEDS ORDERED: MED REC CURRENTLY UNOBTAINABLE XX SCH (09:55)
[2023-06-29] MEDS ORDERED: ISOVUE-370 76% 100ML VIAL As Ordered ONE (10:13)
[2023-06-29] MEDS ORDERED: ACET1TAB55 PO (11:04)
[2023-06-29] MEDS ORDERED: HOME MED LIST COMPLETE! XX SCH (11:05)
[2023-06-29] MEDS ORDERED: MAALOX 30 ML SUSP *UDC PO PRN (11:15)
[2023-06-29] MEDS ORDERED: MOM 30ML SUSPENSION UDC PO PRN (11:15)
[2023-06-29 12:29] LABS: T UPTAKE 44.3 % (22.5-37.0); THYROXINE (T4) 13.5 UG/DL (4.5-10.9)
[2023-06-29 14:19] LABS: CHOLESTEROL RISK RATIO 3.29 (<5); HDL CHOLESTEROL 47.4 MG/DL (>40); LDL CHOLESTEROL 70.2 MG/DL (<100); NON-HDL-C 108.6 MG/DL
[2023-06-29 14:47] VITALS: BP 153/81; TEMP 97.3; O2SAT 95
[2023-06-29 15:23] LABS: HEMOGLOBIN A1c 6.7 % (4.0-6.0)
[2023-06-29] MEDS: ENOXAPARIN 40MG/0.4ML SYRINGE (J1650 PER 10MG) SC SCH (15:44)
[2023-06-29 19:25] VITALS: BP 120/63; TEMP 97.5; O2SAT 96
[2023-06-29] MEDS: ATORVASTATIN 20 MG TAB PO SCH (20:01)
[2023-06-29] MEDS: carBAMazepine 200MG TABLET PO SCH (20:02)
[2023-06-29] MEDS: ACETAMINOPHEN TAB 650MG DOSE (2X325MG) PO PRN (20:06)
[2023-06-29 23:14] VITALS: BP 113/71; TEMP 97.7; O2SAT 96
[2023-06-30] MEDS: ACETAMINOPHEN TAB 650MG DOSE (2X325MG) PO PRN ×2 (00:06→04:17)
[2023-06-30 04:13] VITALS: BP 107/52; TEMP 97.2; O2SAT 97
[2023-06-30] MEDS: LEVOTHYROXINE 112MCG TABLET (0.112MG) PO SCH (05:23)
[2023-06-30 07:47] VITALS: BP 118/60; TEMP 96.6; O2SAT 95
[2023-06-30] MEDS: CLOPIDOGREL 75 MG TAB PO SCH (09:22)
[2023-06-30] MEDS: ENOXAPARIN 40MG/0.4ML SYRINGE (J1650 PER 10MG) SC SCH (09:22)
[2023-06-30] MEDS: ASPIRIN 81MG CHEW TABLET PO SCH (09:23)
[2023-06-30] MEDS: carBAMazepine 200MG TABLET PO SCH ×2 (09:23→21:16)
[2023-06-30 11:28] VITALS: BP 106/61; TEMP 96.7; O2SAT 97
[2023-06-30 19:38] VITALS: BP 101/55; TEMP 97.8; O2SAT 95
[2023-06-30] MEDS: ATORVASTATIN 20 MG TAB PO SCH (21:16)
[2023-06-30 22:18] VITALS: BP 125/58; TEMP 97.6; O2SAT 96
[2023-07-01 04:19] VITALS: BP 117/56; TEMP 97.4; O2SAT 93
[2023-07-01] MEDS: LEVOTHYROXINE 112MCG TABLET (0.112MG) PO SCH (05:47)
[2023-07-01 07:30] LABS: CALCIUM LEVEL 8.8 MG/DL (8.3-10.6); CREATININE FOR GFR 1.04 MG/DL (0.55-1.30); POTASSIUM SERUM 4.3 MMOL/L (3.5-5.1)
[2023-07-01] MEDS: carBAMazepine 200MG TABLET PO SCH ×2 (08:49→20:31)
[2023-07-01] MEDS: CLOPIDOGREL 75 MG TAB PO SCH (08:49)
[2023-07-01] MEDS: ASPIRIN 81MG CHEW TABLET PO SCH (08:49)
[2023-07-01] MEDS: ENOXAPARIN 40MG/0.4ML SYRINGE (J1650 PER 10MG) SC SCH (08:50)
[2023-07-01 10:00] VITALS: BP 93/50; TEMP 98; O2SAT 95
[2023-07-01 10:27] VITALS: BP 118/60
[2023-07-01] MEDS: ATORVASTATIN 20 MG TAB PO SCH (20:31)
[2023-07-02 05:19] VITALS: BP 115/56; TEMP 97.5; O2SAT 95
[2023-07-02] MEDS: LEVOTHYROXINE 112MCG TABLET (0.112MG) PO SCH (05:32)
[2023-07-02] MEDS: ENOXAPARIN 40MG/0.4ML SYRINGE (J1650 PER 10MG) SC SCH (09:02)
[2023-07-02] MEDS: CLOPIDOGREL 75 MG TAB PO SCH (09:02)
[2023-07-02] MEDS: carBAMazepine 200MG TABLET PO SCH ×2 (09:02→20:05)
[2023-07-02] MEDS: ASPIRIN 81MG CHEW TABLET PO SCH (09:02)
[2023-07-02] MEDS: ACETAMINOPHEN TAB 650MG DOSE (2X325MG) PO PRN ×2 (09:06→21:56)
[2023-07-02] MEDS: ATORVASTATIN 20 MG TAB PO SCH (20:05)
[2023-07-02 22:00] VITALS: BP 118/57; TEMP 97.3; O2SAT 99
[2023-07-02] MEDS ORDERED: PERCOCET 5MG/325MG TAB PO ONE (23:30)
[2023-07-03] MEDS: LEVOTHYROXINE 112MCG TABLET (0.112MG) PO SCH (05:59)
[2023-07-03 06:00] VITALS: BP 102/53; TEMP 97.6; O2SAT 97
[2023-07-03] MEDS: CLOPIDOGREL 75 MG TAB PO SCH (08:53)
[2023-07-03] MEDS: ASPIRIN 81MG CHEW TABLET PO SCH (08:53)
[2023-07-03] MEDS: carBAMazepine 200MG TABLET PO SCH (08:54)
[2023-07-03] MEDS: ENOXAPARIN 40MG/0.4ML SYRINGE (J1650 PER 10MG) SC SCH (08:54)
[2023-07-03] MEDS: ACETAMINOPHEN TAB 650MG DOSE (2X325MG) PO PRN (09:07)
[2023-07-05] MEDS ORDERED: ACET-907 PO (21:51)
[2023-07-05] MEDS ORDERED: CARB1TAB20 PO (21:51)
[2023-07-05] MEDS ORDERED: ATOR80TA59 PO (21:51)
== END 2023-07-03 14:34 | disposition home health service (06) ==
LOC: M ED 07:08 → M ED INP 11:11 → INTOOBSV 11:11 → ENRESERV 13:33 → M PCU 14:44 → M MS4PR 06-30 22:07
PROVIDERS: ADMIT Student in an Organized Health Care Education/Training Program; ATTEND Student in an Organized Health Care Education/Training Program
DX: R53.1 Weakness (principal); R20.9 Unspecified disturbances of skin sensation; R29.701 NIHSS score 1; I69.354 Hemiplegia and hemiparesis following cerebral infarction affecting left non-dominant side; Z91.81 History of falling; Z99.89 Dependence on other enabling machines and devices; E03.9 Hypothyroidism, unspecified; I67.82 Cerebral ischemia; E11.9 Type 2 diabetes mellitus without complications; Z86.718 Personal history of other venous thrombosis and embolism; Z79.899 Other long term (current) drug therapy; Z79.890 Hormone replacement therapy; Z79.82 Long term (current) use of aspirin; Z79.02 Long term (current) use of antithrombotics/antiplatelets; Z66 Do not resuscitate; Z80.3 Family history of malignant neoplasm of breast; Z80.1 Family history of malignant neoplasm of trachea, bronchus and lung
CPT/HCPCS: 36415; 70450; 70496; 70498; 70544; 70551; 71045; 72125; 80048; 80061; 80076; 81001; 82140; 82803; 83036; 83605; 83735; 83930; 84436; 84443; 84479; 85025; 85610; 85730; 87040; 87086; 87635; 87641; 93005; 93041; 93306; 94760; 96372; 96374; 97161; 97165; 97530; 97535; 99285; G0378; J1650; J2405; Q9967

== ENCOUNTER 2023-07-04 14:22 | Emergency (ER) | payer OTHER ==
[~2023-07-04] VITALS: Ht 152.4 cm; Wt 52.3 kg
[~2023-07-04 14:22] MED LIST changes: +ACET1TAB55 PO; +ASPI81CH33 PO
[2023-07-04 15:13] VITALS: TEMP 98.7
[2023-07-04] MEDS ORDERED: ISOVUE-370 76% 100ML VIAL As Ordered ONE (15:28)
[2023-07-04 16:23] LABS: BASO # 0.1 10^3/uL (0.0-0.2); BASO % 0.7 % (0.0-1.0); EOS # 0.1 10^3/uL (0.0-0.5); EOS % 1.8 % (0.0-3.0); HEMATOCRIT 32.2 % (36.0-47.0); HEMOGLOBIN 10.7 g/dl (12.0-15.5); LYMPH # 1.5 10^3/uL (1.5-5.0); LYMPH % 19.9 % (24.0-44.0); MEAN CORPUSCULAR HEMOGLOBIN 29.7 pg (27.0-33.0); MEAN CORPUSCULAR HGB CONC 33.2 g/dl (32.0-36.5); MEAN CORPUSCULAR VOLUME 89.4 fl (80.0-96.0); MONO # 0.5 10^3/uL (0.0-0.8); NEUTROPHILS # 5.1 10^3/uL (1.5-8.5); NEUTROPHILS % 70.3 % (36.0-66.0); PLATELET COUNT, AUTOMATED 251 10^3/uL (150-450); WHITE BLOOD COUNT 7.3 10^3/uL (4.0-10.0)
[2023-07-04 16:24] LABS: CREATININE FOR GFR 0.97 MG/DL (0.55-1.30); GLOMERULAR FILTRATION RATE 58.5 (>32); POTASSIUM SERUM 4.6 MMOL/L (3.5-5.1)
[2023-07-04 16:28] LABS: INR 1.01
[2023-07-04 18:19] VITALS: BP 148/116; O2SAT 98
[2023-07-05] MEDS ORDERED: ACET-907 PO (21:51)
[2023-07-05] MEDS ORDERED: CARB1TAB20 PO (21:51)
[2023-07-05] MEDS ORDERED: ATOR80TA59 PO (21:51)
[2023-07-07] MEDS ORDERED: OXYC-517 PO (08:35)
[2023-07-07] MEDS ORDERED: ADVI200T PO (08:35)
[2023-07-07] MEDS ORDERED: SENO8.6T10 PO (08:35)
[2023-07-07] MEDS ORDERED: ACET-683 PO (08:35)
== END 2023-07-04 18:43 | disposition left against medical advice (07) ==
LOC: M ED 14:22
DX: R53.1 Weakness (principal); Z86.73 Personal history of transient ischemic attack (TIA), and cerebral infarction without residual deficits; Z79.899 Other long term (current) drug therapy; Z79.82 Long term (current) use of aspirin

== ENCOUNTER → 2023-08-17 | Outpatient (CLI) | payer OTHER ==
[~2023-08-17] MED LIST changes: +ACET-683 PO; +ADVI200T PO; +OXYC-517 PO; +SENO8.6T10 PO
== END ==
LOC: M SOG 10:36
PROVIDERS: ATTEND Orthopaedic Surgery
DX: S72.115A Nondisplaced fracture of greater trochanter of left femur, initial encounter for closed fracture (principal); W18.30XA Fall on same level, unspecified, initial encounter; Y92.009 Unspecified place in unspecified non-institutional (private) residence as the place of occurrence of the external cause

== ENCOUNTER 2024-06-06 13:22 | Emergency (ER) | payer MEDICARE ==
[2024-06-06] MEDS: NS 1,000 ML IV SCH (13:55)
[2024-06-06 14:07] VITALS: TEMP 97.9
[2024-06-06 14:14] LABS: BASO % 0.3 % (0.0-1.0); EOS # 0.1 10^3/uL (0.0-0.5); EOS % 0.7 % (0.0-3.0); HEMATOCRIT 36.6 % (36.0-47.0); HEMOGLOBIN 12.2 g/dl (12.0-15.5); LYMPH # 1.7 10^3/uL (1.5-5.0); LYMPH % 18.2 % (24.0-44.0); MEAN CORPUSCULAR HEMOGLOBIN 30.8 pg (27.0-33.0); MEAN CORPUSCULAR HGB CONC 33.3 g/dl (32.0-36.5); MEAN CORPUSCULAR VOLUME 92.4 fl (80.0-96.0); MONO # 0.6 10^3/uL (0.0-0.8); NEUTROPHILS # 7.1 10^3/uL (1.5-8.5); NEUTROPHILS % 74.4 % (36.0-66.0); PLATELET COUNT, AUTOMATED 207 10^3/uL (150-450); RED BLOOD COUNT 3.96 10^6/uL (4.00-5.40); WHITE BLOOD COUNT 9.5 10^3/uL (4.0-10.0)
[2024-06-06 14:43] LABS: LIPASE 33 U/L (12-53)
[2024-06-06 14:45] LABS: ALBUMIN 3.8 G/DL (3.2-5.2); ALKALINE PHOSPHATASE 86 U/L (46-116); ALT/SGPT 14 U/L (7.0-40); AST/SGOT 13 U/L (<34); BILIRUBIN,DIRECT < 0.1 MG/DL (<0.4); BILIRUBIN,TOTAL 0.4 MG/DL (0.3-1.2); BLOOD UREA NITROGEN 40 MG/DL (9-23); CALCIUM LEVEL 9.2 MG/DL (8.3-10.6); CARBON DIOXIDE LEVEL 26 MMOL/L (20-31); CHLORIDE LEVEL 110 MMOL/L (98-107); CREATININE FOR GFR 0.97 MG/DL (0.55-1.30); GLOMERULAR FILTRATION RATE 58.4 (>32); GLUCOSE, FASTING 115 MG/DL (74-106); POTASSIUM SERUM 4.3 MMOL/L (3.5-5.1); SODIUM LEVEL 141 MMOL/L (136-145); TOTAL PROTEIN 7.2 G/DL (5.7-8.2)
[2024-06-06] MEDS: NS 500 ML IV ONE (15:35)
[2024-06-06 17:00] VITALS: BP 110/58; O2SAT 96
== END 2024-06-06 17:15 | disposition home or self-care (01) ==
LOC: EDBD 13:22 → M ED 13:22
DX: E86.0 Dehydration (principal); W19.XXXA Unspecified fall, initial encounter; M50.323 Other cervical disc degeneration at C6-C7 level; M46.92 Unspecified inflammatory spondylopathy, cervical region; I49.3 Ventricular premature depolarization; R00.1 Bradycardia, unspecified; E11.9 Type 2 diabetes mellitus without complications; D64.9 Anemia, unspecified; E03.9 Hypothyroidism, unspecified; Z86.79 Personal history of other diseases of the circulatory system; Z79.02 Long term (current) use of antithrombotics/antiplatelets; Z79.899 Other long term (current) drug therapy